=== PATIENT | female | born 1965 | race Caucasian/White ===

== ENCOUNTER → 2023-07-11 09:43 | Outpatient (REF) | payer OTHER, SELFPAY ==
[2023-07-11 12:24] LABS: Hepatitis B Surface Antibody Negative
[2023-07-13 11:20] LABS: Quantiferon Mitogen minus NIL 8.19 IU/mL; Quantiferon NIL 0.01 IU/mL; Quantiferon TB Gold Plus Negative (Negative)
[2023-07-14 16:55] LABS: Mumps Virus IgG Positive; Varicella Zoster IgG (VZV) Positive
[2023-07-15 11:51] LABS: Rubella Negative
[2023-07-15 14:34] LABS: Rubeola (Measles) IgG Positive
== END ==
LOC: REG 09:43
PROVIDERS: ATTENDING PHYSICIAN Nurse Practitioner Family; FAMILY PHYSICIAN Family Medicine
DX: Z23 Encounter for immunization (principal)
CPT/HCPCS: 36415; 86480; 86706; 86735; 86762; 86765; 86787